=== PATIENT | male | born 2000 | race Two or more races ===

== ENCOUNTER 2023-01-24 17:52 | Emergency (ER) | payer OTHER ==
[~2023-01-24] VITALS: Ht 177.8 cm; Wt 78.3 kg
[2023-01-24] MEDS ORDERED: KETOROLAC TROMETH 60MG/2ML VIAL IM ONE (18:45)
[2023-01-24] MEDS ORDERED: ONDANSETRON HCL 4 MG/2 ML VIAL IM ONE (18:45)
[2023-01-24 18:56] LABS: Basophils # (auto) 0 10 ^3/uL (0-0.2); Basophils % (auto) 0.3 % (0.0-2.0); Eosinophils # (auto) 0 10 ^3/uL (0-0.8); Eosinophils % (auto) 0.2 % (0.0-7.0); Hematocrit 47.2 % (41.0-53.0); Hemoglobin 15.9 g/dL (13.5-17.5); Lymphocytes # (auto) 0.9 10 ^3/uL (0.4-5.4); Lymphocytes % (auto) 7.6 % (10.0-50.0); Mean Corpuscular Hemoglobin 30.2 pg (28.0-32.0); Mean Corpuscular Hgb Conc. 33.7 g/dL (32.0-36.0); Mean Corpuscular Volume 89.6 fL (80.0-100.0); Monocytes # (auto) 0.8 10 ^3/uL (0-1.3); Monocytes % (auto) 6.5 % (0.0-12.0); Neutrophils # (auto) 10.3 10 ^3/uL (1.6-8.6); Neutrophils % (auto) 85.4 % (37.0-80.0); Red Blood Cells 5.27 10^6/uL (4.5-5.90); Red Cell Distribution Width 13.6 % (11.8-14.3)
[2023-01-24 19:02] LABS: Urine Bacteria NONE SEEN /hpf (None Seen); Urine Blood Negative /uL (Negative); Urine Specific Gravity 1.006 (1.001-1.035); Urine WBC 1 /hpf (0 - 3)
[2023-01-24 19:13] LABS: Albumin 3.9 g/dL (3.4-5.0); Calcium 9.1 mg/dL (8.5-10.1)
[2023-01-24 19:18] LABS: Bilirubin, Total 0.8 mg/dL (0.2-1.0)
[2023-01-24 21:48] VITALS: BP 133/84
[2023-01-24] MEDS ORDERED: ZOFR4T PO (22:56)
[2023-01-24] MEDS ORDERED: ACET300T58 PO (22:56)
== END 2023-01-25 00:25 | disposition home or self-care (01) ==
LOC: ER 17:52
DX: A08.4 Viral intestinal infection, unspecified (principal); Z20.822 Contact with and (suspected) exposure to COVID-19
CPT/HCPCS: 36415; 80053; 81001; 85025; 87426; 87804; 96372; 99284; J1885; J2405

== ENCOUNTER 2023-08-17 08:54 | Emergency (ER) | payer OTHER ==
[~2023-08-17] VITALS: Ht 177.8 cm; Wt 85.0 kg
[~2023-08-17 08:54] MED LIST: ACET300T58 PO; ZOFR4T PO
[2023-08-17 09:41] VITALS: BP 128/56; PULSE 80; RESP 18; TEMP 97.8; O2SAT 97
[2023-08-17] MEDS ORDERED: LIDO5CRE14 EX (10:07)
[2023-08-17] MEDS ORDERED: IBUP1TAB5 PO (10:07)
== END 2023-08-17 10:18 | disposition home or self-care (01) ==
LOC: ER 08:54
DX: M25.562 Pain in left knee (principal); R51.9 Headache, unspecified; Y08.89XA Assault by other specified means, initial encounter; Y93.89 Activity, other specified; Y92.89 Other specified places as the place of occurrence of the external cause; Y99.8 Other external cause status

== ENCOUNTER 2023-09-29 10:27 | Emergency (ER) | payer OTHER ==
[~2023-09-29] VITALS: Ht 177.8 cm; Wt 81.7 kg
[~2023-09-29 10:27] MED LIST changes: +IBUP1TAB5 PO; +LIDO5CRE14 EX
[2023-09-29 14:41] VITALS: BP 135/81; PULSE 91; RESP 20; TEMP 98.7; O2SAT 96
[2023-09-29] MEDS ORDERED: CYCL-837 PO (15:56)
[2023-09-29] MEDS ORDERED: IBUP-1455 PO (15:56)
== END 2023-09-29 16:07 | disposition home or self-care (01) ==
LOC: ER 10:27
DX: F07.81 Postconcussional syndrome (principal); Z79.899 Other long term (current) drug therapy; V98.8XXA Other specified transport accidents, initial encounter; Y93.89 Activity, other specified; Y92.89 Other specified places as the place of occurrence of the external cause; Y99.8 Other external cause status